=== PATIENT | female | born 1990 | race American Indian/Alaskan Native ===

== ENCOUNTER 2022-05-01 19:31 | Emergency (ER) | payer MEDICAID ==
[2022-05-01] MEDS ORDERED: Ketorolac 30 MG/ML SDV IVPUSH ONE (20:34)
[2022-05-01] MEDS ORDERED: Sodium Chloride 0.9% 1,000 ML IV ONE (20:34)
[2022-05-01] MEDS ORDERED: Ondansetron 4 MG/2 ML SDV IVPUSH ONE (20:34)
[2022-05-01 20:35] LABS: BLOOD UREA NITROGEN,BUN 14 mg/dL (7.0-18.0); CARBON DIOXIDE,CO2 22.8 mmol/L (21.0-32.0); CHLORIDE,CL 102 mmol/L (98-107); GLUCOSE RANDOM 315 mg/dL (74-106); POTASSIUM,K 4.2 mmol/L (3.5-5.1); SODIUM,NA 134 mmol/L (136-145)
[2022-05-01 20:39] LABS: ESTIMATED GFR 89 mL/min (>60)
[2022-05-01 21:51] LABS: CORONAVIRUS COVID-19 NAA NEGATIVE (NEGATIVE); INFLUENZA A NAA NEGATIVE (NEGATIVE); INFLUENZA B NAA NEGATIVE (NEGATIVE)
== END 2022-05-01 22:45 | disposition home or self-care (01) ==
LOC: MW.ED 19:31
DX: R07.89 Other chest pain (principal); E86.0 Dehydration; E11.65 Type 2 diabetes mellitus with hyperglycemia; R11.2 Nausea with vomiting, unspecified; Z20.822 Contact with and (suspected) exposure to COVID-19; Z79.899 Other long term (current) drug therapy; Z79.4 Long term (current) use of insulin; Z90.49 Acquired absence of other specified parts of digestive tract
CPT/HCPCS: 0240U; 36415; 71045; 80053; 80307; 82009; 83690; 84484; 84703; 85025; 93005; 96361; 96374; 96375; 99285; J1885; J2405; J7030; 93010; 99284

== ENCOUNTER 2022-05-17 13:44 | Emergency (ER) | payer MEDICAID | END 2022-05-17 16:00 | disposition left against medical advice (07) | LOC: MW.ED 13:44 | DX: Z53.21 Procedure and treatment not carried out due to patient leaving prior to being seen by health care provider (principal) ==

== ENCOUNTER 2022-08-27 16:12 | Emergency (ER) | payer MEDICAID ==
[2022-08-27] MEDS ORDERED: Ketorolac 60 MG/2 ML SDV IM ONE (16:14)
[2022-08-27] MEDS ORDERED: Lidocaine 2% Viscous Solution 15 ML UD PO ONE (16:14)
[2022-08-27] MEDS ORDERED: Benzocaine 20% Topical Spray UD MUCMEM ONE (16:14)
[2022-08-27] MEDS ORDERED: Penicillin V Potassium 500 MG Tab PO STA (16:17)
== END 2022-08-27 18:50 | disposition home or self-care (01) ==
LOC: MW.ED 16:12
DX: K04.7 Periapical abscess without sinus (principal); K02.9 Dental caries, unspecified; E11.9 Type 2 diabetes mellitus without complications; Z91.013 Allergy to seafood; Z91.018 Allergy to other foods
CPT/HCPCS: 96372; 99282; A9270; J1885

== ENCOUNTER 2022-11-27 13:03 | Emergency (ER) | payer MEDICAID, OTHER ==
[2022-11-27] MEDS ORDERED: cefTRIAXone 500 MG in Lidocaine 1% 1 ML IM STA (15:21)
== END 2022-11-27 16:07 | disposition home or self-care (01) ==
LOC: MW.ED 13:03
DX: N30.01 Acute cystitis with hematuria (principal); F15.10 Other stimulant abuse, uncomplicated; F12.10 Cannabis abuse, uncomplicated; K04.7 Periapical abscess without sinus; E11.9 Type 2 diabetes mellitus without complications; Z91.013 Allergy to seafood; Z91.018 Allergy to other foods
CPT/HCPCS: 80305; 81001; 81025; 87086; 87088; 87186; 93005; 96372; 99283; J0696; J3490

== ENCOUNTER 2022-12-10 20:14 | Observation (INO) | payer SELFPAY ==
[2022-12-10] MEDS ORDERED: Acetaminophen 325 MG Tab PO ONE (20:50)
[2022-12-10] MEDS ORDERED: Lactated Ringers 1,000 ML IV SCH (21:00)
[2022-12-10 21:47] LABS: CARBON DIOXIDE,CO2 24.2 mmol/L (21.0-32.0)
[2022-12-10] MEDS ORDERED: Glucagon,Human Recombinant 1 MG Vial IM PRN ×3 (22:06→22:46)
[2022-12-10] MEDS ORDERED: Insulin Regular, Human 100 Units/ML 10 ML Vial SUBCUT ONE (22:06)
[2022-12-10] MEDS ORDERED: 50% Dextrose in Water 50 ML Syringe IVPUSH PRN ×3 (22:06→22:46)
[2022-12-10] MEDS ORDERED: Ibuprofen 600 MG Tab PO PRN (22:28)
[2022-12-10] MEDS ORDERED: Ondansetron 4 MG Tab.DIS PO PRN (22:28)
[2022-12-10] MEDS ORDERED: Ondansetron 4 MG/2 ML SDV IVPUSH PRN (22:28)
[2022-12-10] MEDS ORDERED: Enoxaparin 40 MG/0.4 ML Syringe SUBCUT SCH (22:30)
[2022-12-10] MEDS ORDERED: Insulin Regular, Human 100 Units/ML 10 ML Vial SUBCUT STA (22:55)
[2022-12-10] MEDS ORDERED: Insulin Glargine,Hum.Rec.Anlog 100 UNIT/ML 3 ML Pen SUBCUT SCH (23:00)
[2022-12-11] MEDS ORDERED: Acetaminophen 325 MG Tab PO PRN (01:00)
[2022-12-11 06:05] LABS: HEMOGLOBIN A1C 12.8 %
[2022-12-11] MEDS ORDERED: Insulin Aspart 100 Units/ML 3 ML Pen SUBCUT SCH ×2 (07:30→11:30)
[2022-12-11] MEDS ORDERED: Glucagon,Human Recombinant 1 MG Vial IM PRN (11:26)
[2022-12-11] MEDS ORDERED: 50% Dextrose in Water 50 ML Syringe IVPUSH PRN (11:26)
[2022-12-11] MEDS ORDERED: Insulin Regular, Human 100 Units/ML 10 ML Vial SUBCUT ONE (22:46)
== END 2022-12-11 12:50 | disposition home or self-care (01) ==
LOC: MW.ED 20:14 → MW.MS 22:25
PROVIDERS: ADMIT Hospitalist; ATTEND Hospitalist
DX: R07.89 Other chest pain (principal); E11.65 Type 2 diabetes mellitus with hyperglycemia; Z91.199 Patient's noncompliance with other medical treatment and regimen due to unspecified reason; F19.10 Other psychoactive substance abuse, uncomplicated; F12.90 Cannabis use, unspecified, uncomplicated; Z79.4 Long term (current) use of insulin; F41.9 Anxiety disorder, unspecified; Z90.49 Acquired absence of other specified parts of digestive tract; Z79.899 Other long term (current) drug therapy
CPT/HCPCS: 36415; 71046; 80053; 80305; 81003; 82803; 82947; 83036; 83605; 83690; 83735; 84703; 85025; A9270; G0378; J1815; J7120; 99285

== ENCOUNTER 2022-12-23 19:39 | Emergency (ER) | payer MEDICAID ==
[2022-12-23] MEDS ORDERED: Famotidine 20 MG Tab PO ONE (19:43)
[2022-12-23] MEDS ORDERED: Dexamethasone 10 MG/ML SDV IM STA (19:43)
== END 2022-12-23 20:23 | disposition home or self-care (01) ==
LOC: MW.ED 19:39
DX: T78.40XA Allergy, unspecified, initial encounter (principal); E10.9 Type 1 diabetes mellitus without complications; Z91.018 Allergy to other foods; Z91.013 Allergy to seafood; Z90.49 Acquired absence of other specified parts of digestive tract
CPT/HCPCS: 96372; 99283; A9270; J1100

== ENCOUNTER 2023-01-06 15:54 | Emergency (ER) | payer MEDICAID ==
[2023-01-06] MEDS ORDERED: Sodium Chloride 0.9% 10 ML Syringe FLUSH PRN (15:55)
[2023-01-06] MEDS ORDERED: Sodium Chloride 0.9% 2.5 ML Syringe FLUSH PRN (15:55)
[2023-01-06] MEDS ORDERED: Sodium Chloride 0.9% 1,000 ML IV ONE (16:02)
[2023-01-06 16:32] LABS: BASOPHILS PERCENT AUTO 0.2 % (0.0-1.5); EOSINOPHILS ABSOLUTE AUTO 0.1 K/uL (0.0-0.7); EOSINOPHILS PERCENT AUTO 2.2 % (0.0-7.0); HEMATOCRIT 35.6 % (36.0-46.0); HEMOGLOBIN 11.9 g/dL (12.0-16.0); LYMPHOCYTES ABSOLUTE AUTO 1.8 K/uL (0.6-2.4); LYMPHOCYTES PERCENT AUTO 29.5 % (16.0-40.0); MEAN CORPUSCULAR HEMOGLOBIN 26.7 pg (27.0-32.0); MEAN CORPUSCULAR HGB CONC 33.4 g/dL (31.0-37.0); MONOCYTES ABSOLUTE AUTO 0.4 K/uL (0.0-0.8); MONOCYTES PERCENT AUTO 7.1 % (0.0-15.0); NEUTROPHILS ABSOLUTE AUTO 3.6 K/uL (1.4-5.7); NRBC ABSOLUTE 0 K/uL; PLATELET COUNT,PLT 334 K/uL (150-400); RED BLOOD CELL COUNT 4.45 M/uL (4.30-5.90); WHITE BLOOD CELL COUNT,WBC 5.94 K/uL (4.0-11.0)
[2023-01-06 16:44] LABS: APPEARANCE,URINE CLEAR; BILIRUBIN,URINE NEGATIVE (NEGATIVE); COLOR,URINE YELLOW; GLUCOSE,URINE >=1000 mg/dL (NEGATIVE); KETONES,URINE NEGATIVE (NEGATIVE); LEUKOCYTE ESTERASE,URINE NEGATIVE (NEGATIVE); NITRITE,URINE NEGATIVE (NEGATIVE); OCCULT BLOOD,URINE NEGATIVE (NEGATIVE); PROTEIN,URINE NEGATIVE (NEGATIVE); UROBILINOGEN,URINE 0.2 EU/dL (<2.0)
[2023-01-06 16:54] LABS: AMPHETAMINES SCREEN, URINE PRESUMPTIVE POSITIVE (CUTOFF=500); BARBITURATE SCREEN,URINE NEGATIVE (CUTOFF=200); BENZODIAZEPINES SCREEN,URINE NEGATIVE (CUTOFF=150); BUPRENORPHINE SCREEN,URINE NEGATIVE (CUTOFF=10); METHADONE SCREEN, URINE NEGATIVE (CUTOFF=200); METHAMPHETAMINES SCREEN, URINE PRESUMPTIVE POSITIVE (CUTOFF=500); OXYCODONE SCREEN,URINE NEGATIVE (CUT0FF=100); PCP SCREEN,URINE NEGATIVE (CUTOFF=25); PROPOXYPHENE SCREEN,URINE NEGATIVE (CUTOFF=300); THC SCREEN,URINE 20 NG/ML PRESUMPTIVE POSITIVE (CUTOFF=50)
[2023-01-06 17:02] LABS: A/G RATIO 0.7 (0.9-1.6); ALANINE AMINOTRANSFERASE,ALT 16 IU/L (14-63); ALBUMIN 2.6 g/dL (3.4-5.0); ALKALINE PHOSPHATASE 91 U/L (46-116); ASPARTATE AMNIOTRANSFERASE,AST 14 IU/L (15-37); BILIRUBIN TOTAL 0.2 mg/dL (0.2-1.0); BLOOD UREA NITROGEN,BUN 11 mg/dL (7.0-18.0); CALCIUM 8.2 mg/dL (8.5-10.1); CARBON DIOXIDE,CO2 22.7 mmol/L (21.0-32.0); CHLORIDE,CL 104 mmol/L (98-107); CREATININE 0.7 mg/dL (0.6-1.0); ESTIMATED GFR 119 mL/min (>60); GLUCOSE RANDOM 376 mg/dL (74-106); LIPASE 117 U/L (73-393); MAGNESIUM 1.8 mg/dL (1.8-2.4); PROTEIN TOTAL,TP 6.5 g/dL (6.4-8.2); SODIUM,NA 137 mmol/L (136-145)
[2023-01-06] MEDS ORDERED: Iopamidol 755 MG/ML 500 ML Multipack Bottle IVPUSH ONE (17:11)
[2023-01-06] MEDS ORDERED: Lidocaine 1% 5 ML VIAL INJECT ONE (17:23)
[2023-01-06] MEDS ORDERED: Insulin Regular, Human 100 Units/ML 10 ML Vial SUBCUT ONE (17:24)
[2023-01-06] MEDS ORDERED: 50% Dextrose in Water 50 ML Syringe IVPUSH PRN (17:24)
[2023-01-06] MEDS ORDERED: Glucagon,Human Recombinant 1 MG Vial IM PRN (17:24)
[2023-01-06] MEDS ORDERED: Clindamycin HCl 150 MG Cap PO ONE (17:58)
== END 2023-01-06 18:50 | disposition home or self-care (01) ==
LOC: MW.ED 15:54
DX: L02.31 Cutaneous abscess of buttock (principal); E10.65 Type 1 diabetes mellitus with hyperglycemia; F19.10 Other psychoactive substance abuse, uncomplicated; Z91.013 Allergy to seafood; Z91.018 Allergy to other foods; Z91.198 Patient's noncompliance with other medical treatment and regimen for other reason
CPT/HCPCS: 36415; 74177; 80053; 80305; 81003; 81025; 82009; 82947; 83605; 83690; 83735; 85025; 87040; 96360; 99285; A9270; J1815; J3490; J7030; Q9967; 99283

== ENCOUNTER 2023-01-17 16:27 | Emergency (ER) | payer MEDICAID ==
[2023-01-17] MEDS ORDERED: oxyCODONE 5 MG Tab PO ONE (17:49)
[2023-01-17] MEDS ORDERED: Acetaminophen 325 MG Tab PO ONE (17:49)
[2023-01-17] MEDS ORDERED: Ibuprofen 400 MG Tab PO ONE (17:49)
[2023-01-17] MEDS ORDERED: Lidocaine 2% 5 ML SDV INJECT ONE (17:50)
[2023-01-17] MEDS ORDERED: Lidocaine 1% 5 ML VIAL ONE (17:55)
[2023-01-17] MEDS ORDERED: Lidocaine 1% 5 ML VIAL INJECT ONE (17:58)
[2023-01-17] MEDS ORDERED: Amoxicillin/Clavulanate K 875-125 MG Tab PO ONE (18:11)
== END 2023-01-17 19:11 | disposition home or self-care (01) ==
LOC: MW.ED 16:27
DX: K04.7 Periapical abscess without sinus (principal); E10.9 Type 1 diabetes mellitus without complications; Z79.899 Other long term (current) drug therapy; Z91.018 Allergy to other foods; Z91.013 Allergy to seafood; Z98.890 Other specified postprocedural states
CPT/HCPCS: 41800; 99282; A9270; 40800; 99283; J3490

== ENCOUNTER 2023-02-15 02:01 | Emergency (ER) | payer SELFPAY ==
[2023-02-15 02:43] LABS: BASOPHILS PERCENT AUTO 0.1 % (0.0-1.5); EOSINOPHILS PERCENT AUTO 0.2 % (0.0-7.0); HEMATOCRIT 43.3 % (36.0-46.0); HEMOGLOBIN 14.5 g/dL (12.0-16.0); LYMPHOCYTES ABSOLUTE AUTO 2.1 K/uL (0.6-2.4); LYMPHOCYTES PERCENT AUTO 24.3 % (16.0-40.0); MEAN CORPUSCULAR HGB CONC 33.5 g/dL (31.0-37.0); MEAN CORPUSCULAR VOLUME 80.6 fL (80.0-98.0); MONOCYTES ABSOLUTE AUTO 0.6 K/uL (0.0-0.8); MONOCYTES PERCENT AUTO 7.2 % (0.0-15.0); NEUTROPHILS ABSOLUTE AUTO 5.8 K/uL (1.4-5.7); NEUTROPHILS PERCENT AUTO 68.2 % (48.0-80.0); NRBC ABSOLUTE 0 K/uL; PLATELET COUNT,PLT 390 K/uL (150-400); RED BLOOD CELL COUNT 5.37 M/uL (4.30-5.90); WHITE BLOOD CELL COUNT,WBC 8.49 K/uL (4.0-11.0)
[2023-02-15] MEDS ORDERED: Lactated Ringers 1,000 ML IV SCH (02:45)
[2023-02-15 02:46] LABS: BASE EXCESS VENOUS 0.5 (-2.0-3.0); BICARBONATE,VENOUS 26 mEq/L (23-28); PCO2 VENOUS 46 mmHG (41-51); PH,VENOUS 7.37 (7.31-7.41)
[2023-02-15 02:48] LABS: PO2 VENOUS < 30 mmHG
[2023-02-15] MEDS ORDERED: Naloxone 0.4 MG/ML SDV IVPUSH PRN (02:55)
[2023-02-15] MEDS ORDERED: Lidocaine 2% 5 ML SDV INJECT ONE (02:55)
[2023-02-15] MEDS ORDERED: Morphine 4 MG/ML Syringe IVPUSH ONE (02:55)
[2023-02-15] MEDS ORDERED: Sulfamethoxazole/Trimethoprim 800-160 MG Tab PO ONE (02:55)
[2023-02-15 03:12] LABS: A/G RATIO 0.7 (0.9-1.6); ALBUMIN 3.8 g/dL (3.4-5.0); BILIRUBIN TOTAL 0.5 mg/dL (0.2-1.0); CALCIUM 9.6 mg/dL (8.5-10.1); CARBON DIOXIDE,CO2 24.9 mmol/L (21.0-32.0); CREATININE 0.8 mg/dL (0.6-1.0); EST CRCL DRUG DOSING (CG) 85.06 mL/min; POTASSIUM,K 4.3 mmol/L (3.5-5.1); PROTEIN TOTAL,TP 9.2 g/dL (6.4-8.2)
[2023-02-15 03:17] LABS: LACTIC ACID 0.9 mmol/L (0.4-2.0)
[2023-02-15] MEDS ORDERED: Morphine 4 MG/ML Syringe ONE (03:50)
[2023-02-15] MEDS ORDERED: Morphine 4 MG/ML Syringe IVPUSH STA (03:51)
== END 2023-02-15 04:22 | disposition home or self-care (01) ==
LOC: MW.ED 02:01 → EEVIPCON 02:01 → MW.ED 04:22
DX: L02.811 Cutaneous abscess of head [any part, except face] (principal); E10.9 Type 1 diabetes mellitus without complications; Z88.8 Allergy status to other drugs, medicaments and biological substances; Z91.013 Allergy to seafood; Z91.018 Allergy to other foods
CPT/HCPCS: 10060; 36415; 80053; 82009; 82803; 82947; 83605; 83690; 84703; 85025; 87040; 87070; 87077; 87186; 87205; 96361; 96374; 96376; 99283; A9270; J2270; J7120; 99284; J3490

== ENCOUNTER 2023-03-03 16:59 | Emergency (ER) | payer MEDICAID ==
[2023-03-03] MEDS ORDERED: Morphine 4 MG/ML Syringe IVPUSH ONE (18:06)
[2023-03-03] MEDS ORDERED: Sodium Chloride 0.9% 1,000 ML IV ONE ×2 (18:06→19:38)
[2023-03-03] MEDS ORDERED: Clindamycin Phosphate in D5W 600 MG in Premix Bag 1 BAG IV ONE ×2 (18:08)
[2023-03-03 18:45] LABS: BASOPHILS PERCENT AUTO 0.3 % (0.0-1.5); EOSINOPHILS ABSOLUTE AUTO 0.1 K/uL (0.0-0.7); EOSINOPHILS PERCENT AUTO 0.9 % (0.0-7.0); HEMATOCRIT 43.8 % (36.0-46.0); HEMOGLOBIN 14.8 g/dL (12.0-16.0); LYMPHOCYTES ABSOLUTE AUTO 1.9 K/uL (0.6-2.4); LYMPHOCYTES PERCENT AUTO 24.5 % (16.0-40.0); MEAN CORPUSCULAR HEMOGLOBIN 27.7 pg (27.0-32.0); MEAN CORPUSCULAR HGB CONC 33.8 g/dL (31.0-37.0); MONOCYTES ABSOLUTE AUTO 0.5 K/uL (0.0-0.8); MONOCYTES PERCENT AUTO 6.7 % (0.0-15.0); NEUTROPHILS ABSOLUTE AUTO 5.3 K/uL (1.4-5.7); NEUTROPHILS PERCENT AUTO 67.6 % (48.0-80.0); NRBC ABSOLUTE 0 K/uL; PLATELET COUNT,PLT 458 K/uL (150-400); RED BLOOD CELL COUNT 5.34 M/uL (4.30-5.90); WHITE BLOOD CELL COUNT,WBC 7.81 K/uL (4.0-11.0)
[2023-03-03 19:10] LABS: A/G RATIO 0.8 (0.9-1.6); BILIRUBIN TOTAL 0.2 mg/dL (0.2-1.0); CALCIUM 9.6 mg/dL (8.5-10.1); CARBON DIOXIDE,CO2 28.9 mmol/L (21.0-32.0); CREATININE 0.8 mg/dL (0.6-1.0); EST CRCL DRUG DOSING (CG) 85.06 mL/min; POTASSIUM,K 4.4 mmol/L (3.5-5.1); PROTEIN TOTAL,TP 8.9 g/dL (6.4-8.2)
[2023-03-03 19:30] LABS: LACTIC ACID 1.3 mmol/L (0.4-2.0)
[2023-03-03] MEDS ORDERED: Insulin Regular, Human 100 Units/ML 10 ML Vial IVPUSH ONE (19:55)
[2023-03-03] MEDS ORDERED: Glucagon,Human Recombinant 1 MG Vial IM PRN (19:55)
[2023-03-03] MEDS ORDERED: 50% Dextrose in Water 50 ML Syringe IVPUSH PRN (19:55)
[2023-03-03] MEDS ORDERED: Acetaminophen/HYDROcodone 325-5 MG Tab PO ONE (21:29)
== END 2023-03-03 21:38 | disposition home or self-care (01) ==
LOC: MW.ED 16:59
DX: L02.413 Cutaneous abscess of right upper limb (principal); B35.0 Tinea barbae and tinea capitis; E10.9 Type 1 diabetes mellitus without complications; Z79.899 Other long term (current) drug therapy; Z91.018 Allergy to other foods; Z91.013 Allergy to seafood
CPT/HCPCS: 10060; 36415; 80053; 82947; 83605; 84703; 85025; 87040; 87070; 87077; 87186; 87205; 96361; 96365; 96375; 99283; J1815; J2270; J3490; J7030

== ENCOUNTER 2023-03-08 19:29 | Emergency (ER) | payer MEDICAID | END 2023-03-08 20:59 | disposition home or self-care (01) | LOC: MW.ED 19:29 | DX: B35.0 Tinea barbae and tinea capitis (principal); E10.9 Type 1 diabetes mellitus without complications; Z79.899 Other long term (current) drug therapy; Z91.018 Allergy to other foods; Z91.013 Allergy to seafood; Z98.890 Other specified postprocedural states | CPT/HCPCS: 70450; 70450-26; 99283; 99284 ==

== ENCOUNTER 2023-07-04 16:55 | Emergency (ER) | payer MEDICAID ==
[2023-07-04] MEDS ORDERED: Sodium Chloride 0.9% 10 ML Syringe FLUSH PRN (17:30)
[2023-07-04] MEDS ORDERED: Sodium Chloride 0.9% 2.5 ML Syringe FLUSH PRN (17:30)
[2023-07-04] MEDS ORDERED: Sodium Chloride 0.9% 1,000 ML IV STA (17:32)
[2023-07-04] MEDS ORDERED: Ketorolac 30 MG/ML SDV IVPUSH STA (17:32)
[2023-07-04] MEDS ORDERED: Acetaminophen 500 MG Tab PO STA (17:39)
[2023-07-04 18:17] LABS: BILIRUBIN,URINE NEGATIVE (NEGATIVE); COLOR,URINE YELLOW; GLUCOSE,URINE >=1000 mg/dL (NEGATIVE); KETONES,URINE 15 mg/dL (NEGATIVE); LEUKOCYTE ESTERASE,URINE SMALL (NEGATIVE); NITRITE,URINE POSITIVE (NEGATIVE); OCCULT BLOOD,URINE TRACE-INTACT (NEGATIVE); PH,URINE 6.5 (5.0-8.0); PROTEIN,URINE NEGATIVE (NEGATIVE); UROBILINOGEN,URINE 0.2 EU/dL (<2.0)
[2023-07-04 18:27] LABS: AMPHETAMINES SCREEN, URINE PRESUMPTIVE POSITIVE (CUTOFF=500); BARBITURATE SCREEN,URINE NEGATIVE (CUTOFF=200); BENZODIAZEPINES SCREEN,URINE NEGATIVE (CUTOFF=150); BUPRENORPHINE SCREEN,URINE NEGATIVE (CUTOFF=10); METHADONE SCREEN, URINE NEGATIVE (CUTOFF=200); METHAMPHETAMINES SCREEN, URINE PRESUMPTIVE POSITIVE (CUTOFF=500); OXYCODONE SCREEN,URINE NEGATIVE (CUT0FF=100); PCP SCREEN,URINE NEGATIVE (CUTOFF=25); PROPOXYPHENE SCREEN,URINE NEGATIVE (CUTOFF=300); THC SCREEN,URINE 20 NG/ML PRESUMPTIVE POSITIVE (CUTOFF=50)
[2023-07-04 18:33] LABS: APPEARANCE,URINE CLOUDY
[2023-07-04 18:37] LABS: EPITHELIAL CELLS,URINE MODERATE (NONE-FEW); RBC,URINE 0-1 (0-2/HPF)
[2023-07-04 18:38] LABS: BACTERIA,URINE 3+ (NEGATIVE)
[2023-07-04 18:39] LABS: WBC,URINE TO NUMEROUS TO COUNT (0-5/HPF)
[2023-07-04 18:46] LABS: BASOPHILS ABSOLUTE AUTO 0.04 K/uL (0.00-0.20); BASOPHILS PERCENT AUTO 0.4 % (0.0-1.0); EOSINOPHILS ABSOLUTE AUTO 0.09 K/uL (0.00-0.45); EOSINOPHILS PERCENT AUTO 0.8 % (0.0-6.0); IMMATURE GRAN ABSOLUTE AUTO 0.02 K/uL (0.00-0.05); IMMATURE GRAN PERCENT AUTO 0.2 % (0.0-0.4); LYMPHOCYTES ABSOLUTE AUTO 1.57 K/uL (1.00-4.80); LYMPHOCYTES PERCENT AUTO 14.6 % (24.0-44.0); MEAN CORPUSCULAR HGB CONC 33.3 g/dL (32.0-36.0); MEAN CORPUSCULAR VOLUME 80.9 fL (83.0-99.0); MEAN PLATELET VOLUME 9.4 fL (9.4-12.3); MONOCYTES ABSOLUTE AUTO 0.64 K/uL (0.00-0.80); MONOCYTES PERCENT AUTO 5.9 % (0.0-8.0); NEUTROPHILS ABSOLUTE AUTO 8.41 K/uL (1.80-7.70); NEUTROPHILS PERCENT AUTO 78.1 % (41.0-71.0); PLATELET COUNT,PLT 391 K/uL (150-400); RED BLOOD CELL COUNT 5.56 M/uL (4.10-5.30); WHITE BLOOD CELL COUNT,WBC 10.77 K/uL (3.9-11.3)
[2023-07-04 19:05] LABS: CORONAVIRUS COVID-19 NAA NEGATIVE (NEGATIVE); INFLUENZA A NAA NEGATIVE (NEGATIVE); INFLUENZA B NAA NEGATIVE (NEGATIVE)
[2023-07-04 20:46] LABS: A/G RATIO 0.7 (0.9-1.6); BILIRUBIN TOTAL 0.2 mg/dL (0.2-1.0); CALCIUM 8.4 mg/dL (8.5-10.1); CARBON DIOXIDE,CO2 25.5 mmol/L (21.0-32.0); CREATININE 0.7 mg/dL (0.6-1.0); EST CRCL DRUG DOSING (CG) 97.21 mL/min; POTASSIUM,K 4.2 mmol/L (3.5-5.1); PROTEIN TOTAL,TP 7.1 g/dL (6.4-8.2)
[2023-07-04] MEDS ORDERED: Iopamidol 755 MG/ML 500 ML Multipack Bottle IVPUSH ONE (21:01)
[2023-07-04] MEDS ORDERED: cefTRIAXone 1 GM in Sodium Chloride 0.9% 50 ML IV STA (21:21)
== END 2023-07-04 22:25 | disposition home or self-care (01) ==
LOC: MW.ED 16:55
DX: L03.811 Cellulitis of head [any part, except face] (principal); K04.7 Periapical abscess without sinus; N30.01 Acute cystitis with hematuria; E10.9 Type 1 diabetes mellitus without complications; Z98.890 Other specified postprocedural states; Z91.018 Allergy to other foods; Z91.013 Allergy to seafood; Z20.822 Contact with and (suspected) exposure to COVID-19
CPT/HCPCS: 0240U; 36415; 70450; 70491; 80053; 80305; 81001; 81025; 82009; 82947; 83690; 83735; 85025; 87086; 87651; 96361; 96365; 96375; 99284; A9270; J0696; J1885; J3490; J7030; Q9967

== ENCOUNTER 2023-11-27 02:31 | Emergency (ER) | payer SELFPAY ==
[2023-11-27] MEDS: Ketorolac 30 MG/ML SDV IM ONE (02:47)
[2023-11-27] MEDS: Acetaminophen 325 MG Tab PO ONE (02:47)
== END 2023-11-27 03:38 | disposition home or self-care (01) ==
LOC: MW.ED 02:31
DX: S30.0XXA Contusion of lower back and pelvis, initial encounter (principal); E10.9 Type 1 diabetes mellitus without complications; Z91.018 Allergy to other foods; Z91.013 Allergy to seafood; Z90.49 Acquired absence of other specified parts of digestive tract; Z75.8 Other problems related to medical facilities and other health care; W10.8XXA Fall (on) (from) other stairs and steps, initial encounter
CPT/HCPCS: 73502; 73552; 96372; 99283; A9270; J1885

== ENCOUNTER 2023-11-28 13:36 | Emergency (ER) | payer SELFPAY ==
[2023-11-28] MEDS: Ketorolac 30 MG/ML SDV IM ONE (14:05)
== END 2023-11-28 16:01 | disposition home or self-care (01) ==
LOC: MW.ED 13:36
DX: M25.552 Pain in left hip (principal); E10.9 Type 1 diabetes mellitus without complications; Z91.018 Allergy to other foods; Z91.013 Allergy to seafood; Z90.49 Acquired absence of other specified parts of digestive tract; Z75.8 Other problems related to medical facilities and other health care; Z79.899 Other long term (current) drug therapy; W19.XXXA Unspecified fall, initial encounter
CPT/HCPCS: 72192; 96372; 99283; J1885

== ENCOUNTER 2023-12-04 02:13 | Emergency (ER) | payer SELFPAY ==
[2023-12-04] MEDS: HYDROmorphone 1 MG/ML Syringe IM ONE (02:30)
== END 2023-12-04 03:15 | disposition home or self-care (01) ==
LOC: MW.ED 02:13
DX: S70.02XA Contusion of left hip, initial encounter (principal); E10.9 Type 1 diabetes mellitus without complications; Z91.030 Bee allergy status; Z91.018 Allergy to other foods; Z79.899 Other long term (current) drug therapy; Z75.8 Other problems related to medical facilities and other health care; Z90.49 Acquired absence of other specified parts of digestive tract; W00.9XXA Unspecified fall due to ice and snow, initial encounter
CPT/HCPCS: 96372; 99283; J1170

== ENCOUNTER 2023-12-07 08:24 | Inpatient (IN) | payer SELFPAY ==
[2023-12-07 08:40] LABS: HEMOGLOBIN 13.8 g/dL (12.0-16.0); MEAN CORPUSCULAR HEMOGLOBIN 27.1 pg (28.0-32.0); MEAN CORPUSCULAR HGB CONC 34.5 g/dL (32.0-36.0); MEAN CORPUSCULAR VOLUME 78.6 fL (83.0-99.0); MEAN PLATELET VOLUME 9.5 fL (9.4-12.3); PLATELET COUNT,PLT 454 K/uL (150-400); RED BLOOD CELL COUNT 5.09 M/uL (4.10-5.30)
[2023-12-07] MEDS: Sodium Chloride 0.9% 10 ML Syringe FLUSH PRN (08:42)
[2023-12-07] MEDS: Sodium Chloride 0.9% 2.5 ML Syringe FLUSH PRN (08:42)
[2023-12-07] MEDS: Sodium Chloride 0.9% 1,000 ML IV STA ×2 (08:42→10:30)
[2023-12-07 08:45] LABS: BASE EXCESS VENOUS -21.6 (-2.0-3.0); PH,VENOUS 7.1 (7.31-7.41)
[2023-12-07 08:58] LABS: APPEARANCE,URINE CLEAR; COLOR,URINE YELLOW; GLUCOSE,URINE >=1000 mg/dL (NEGATIVE); KETONES,URINE >=80 mg/dL (NEGATIVE); LEUKOCYTE ESTERASE,URINE TRACE (NEGATIVE); NITRITE,URINE NEGATIVE (NEGATIVE); OCCULT BLOOD,URINE SMALL (NEGATIVE); PH,URINE 5.5 (5.0-8.0); PROTEIN,URINE TRACE mg/dL (NEGATIVE); UROBILINOGEN,URINE 0.2 EU/dL (<2.0)
[2023-12-07 08:59] LABS: BILIRUBIN,URINE SMALL (NEGATIVE)
[2023-12-07 09:05] LABS: AMPHETAMINES SCREEN, URINE PRESUMPTIVE POSITIVE (CUTOFF=500); BARBITURATE SCREEN,URINE NEGATIVE (CUTOFF=200); BENZODIAZEPINES SCREEN,URINE NEGATIVE (CUTOFF=150); BUPRENORPHINE SCREEN,URINE NEGATIVE (CUTOFF=10); METHADONE SCREEN, URINE NEGATIVE (CUTOFF=200); METHAMPHETAMINES SCREEN, URINE PRESUMPTIVE POSITIVE (CUTOFF=500); OXYCODONE SCREEN,URINE NEGATIVE (CUT0FF=100); PCP SCREEN,URINE NEGATIVE (CUTOFF=25); THC SCREEN,URINE 20 NG/ML PRESUMPTIVE POSITIVE (CUTOFF=50)
[2023-12-07 09:10] LABS: BACTERIA,URINE FEW (NEGATIVE); EPITHELIAL CELLS,URINE OCCASIONAL (NONE-FEW); RBC,URINE 0-2 (0-2/HPF); YEAST,URINE FEW
[2023-12-07 09:16] LABS: ALBUMIN 1.8 g/dL (3.4-5.0); BILIRUBIN TOTAL 0.4 mg/dL (0.2-1.0); CALCIUM 9.4 mg/dL (8.5-10.1); CARBON DIOXIDE,CO2 7.1 mmol/L (21.0-32.0); EST CRCL DRUG DOSING (CG) 67.43 mL/min; POTASSIUM,K 3.1 mmol/L (3.5-5.1)
[2023-12-07 09:32] LABS: BAND ABSOLUTE MAN 1.55; BAND PERCENT MAN 6 %; LYMPHOCYTES ABSOLUTE MAN 0.77 K/uL (1.00-4.80); LYMPHOCYTES PERCENT MAN 3 % (24-44); METAMYELOCYTE ABSOLUTE MAN 0.77; METAMYELOCYTE PERCENT MAN 3 %; MONOCYTES ABSOLUTE MAN 2.06 K/uL (0.00-0.80); MONOCYTES PERCENT MAN 8 % (0-8); SEG NEUTROPHILS ABSOLUTE MAN 20.64 K/uL (1.80-7.70); SEG NEUTROPHILS PERCENT MAN 80 % (41-71)
[2023-12-07 09:37] LABS: A/G RATIO 0.4 (0.9-1.6)
[2023-12-07] MEDS ORDERED: Potassium Chloride 20 MEQ in Premix Bag 1 BAG IV ONE (10:16)
[2023-12-07] MEDS: Potassium Chloride 10 MEQ in Premix Bag 1 BAG IV SCH (10:30)
[2023-12-07] MEDS: Potassium Chloride 10% 20 MEQ/15 ML Soln 15 ML UD Cup PO ONE (10:30)
[2023-12-07] MEDS: Ondansetron 4 MG/2 ML SDV IVPUSH ONE (11:03)
[2023-12-07 11:52] LABS: CALCIUM 8.6 mg/dL (8.5-10.1); CARBON DIOXIDE,CO2 6.5 mmol/L (21.0-32.0); CREATININE 0.8 mg/dL (0.6-1.0); EST CRCL DRUG DOSING (CG) 84.29 mL/min; POTASSIUM,K 2.9 mmol/L (3.5-5.1)
[2023-12-07] MEDS: NS with KCl 40mEq 1,000 ML IV SCH (12:17)
[2023-12-07] MEDS: Insulin Regular in 0.9 % NACL 100 ML IV SCH (12:22)
[2023-12-07] MEDS: Midazolam 1 MG/ML 2 ML SDV IVPUSH ONE (13:05)
[2023-12-07] MEDS: VANCOmycin 1.5 GM/300 ML 1.5 GM in Premix Bag 1 BAG IV ONE (13:33)
[2023-12-07] MEDS: Piperacillin/Tazobactam 3.375 GM in Sodium Chloride 0.9% 100 ML IV SCH ×2 (14:09→19:52)
[2023-12-07 14:31] LABS: CALCIUM 8.5 mg/dL (8.5-10.1); CARBON DIOXIDE,CO2 7.5 mmol/L (21.0-32.0); CREATININE 0.8 mg/dL (0.6-1.0); EST CRCL DRUG DOSING (CG) 84.29 mL/min
[2023-12-07] MEDS: Potassium Chloride 20 MEQ Tab.ER PO ONE ×2 (14:40→15:13)
[2023-12-07] MEDS: Potassium Chloride 20 MEQ in Premix Bag 1 BAG IV SCH (14:53)
[2023-12-07 15:05] LABS: POTASSIUM,K 1.8 mmol/L (3.5-5.1)
[2023-12-07 16:34] LABS: CALCIUM 8.3 mg/dL (8.5-10.1); CARBON DIOXIDE,CO2 5.1 mmol/L (21.0-32.0); CREATININE 0.7 mg/dL (0.6-1.0); EST CRCL DRUG DOSING (CG) 96.33 mL/min; MAGNESIUM 2.2 mg/dL (1.8-2.4); POTASSIUM,K 3.5 mmol/L (3.5-5.1)
[2023-12-07] MEDS ORDERED: Naloxone 0.4 MG/ML SDV IVPUSH PRN (16:53)
[2023-12-07] MEDS: Morphine 2 MG/ML SYRINGE IVPUSH PRN (17:02)
[2023-12-07 18:32] LABS: CARBON DIOXIDE,CO2 7.4 mmol/L (21.0-32.0); CREATININE 0.7 mg/dL (0.6-1.0); EST CRCL DRUG DOSING (CG) 96.33 mL/min; POTASSIUM,K 3.1 mmol/L (3.5-5.1)
[2023-12-07] MEDS: NS + KCl 20mEq/L 1,000 ML IV SCH (18:53)
[2023-12-07 20:42] LABS: CALCIUM 7.8 mg/dL (8.5-10.1); CARBON DIOXIDE,CO2 10.4 mmol/L (21.0-32.0); CREATININE 0.7 mg/dL (0.6-1.0); EST CRCL DRUG DOSING (CG) 96.33 mL/min; POTASSIUM,K 2.9 mmol/L (3.5-5.1)
[2023-12-07] MEDS: Potassium Chloride 100 ML IV SCH (21:31)
[2023-12-07 22:27] LABS: CALCIUM 7.9 mg/dL (8.5-10.1); CARBON DIOXIDE,CO2 10.4 mmol/L (21.0-32.0); CREATININE 0.6 mg/dL (0.6-1.0); EST CRCL DRUG DOSING (CG) 112.38 mL/min; POTASSIUM,K 3.4 mmol/L (3.5-5.1)
[2023-12-07] MEDS: Dextrose 5%-0.9% NaCl with KCl 1,000 ML IV SCH (23:38)
[2023-12-08 00:52] LABS: CALCIUM 7.7 mg/dL (8.5-10.1); CARBON DIOXIDE,CO2 11.2 mmol/L (21.0-32.0); CREATININE 0.7 mg/dL (0.6-1.0); EST CRCL DRUG DOSING (CG) 96.33 mL/min; POTASSIUM,K 3.4 mmol/L (3.5-5.1)
[2023-12-08 02:58] LABS: CALCIUM 7.8 mg/dL (8.5-10.1); CARBON DIOXIDE,CO2 13.2 mmol/L (21.0-32.0); CREATININE 0.6 mg/dL (0.6-1.0); EST CRCL DRUG DOSING (CG) 112.38 mL/min; POTASSIUM,K 2.9 mmol/L (3.5-5.1)
[2023-12-08] MEDS: Potassium Chloride 100 ML IV SCH ×2 (03:42→11:09)
[2023-12-08 05:18] LABS: CALCIUM 7.7 mg/dL (8.5-10.1); CREATININE 0.6 mg/dL (0.6-1.0); EST CRCL DRUG DOSING (CG) 112.38 mL/min; POTASSIUM,K 3.2 mmol/L (3.5-5.1)
[2023-12-08 06:25] LABS: HEMATOCRIT 28.6 % (37.0-47.0); MEAN CORPUSCULAR HEMOGLOBIN 26.7 pg (28.0-32.0); MEAN CORPUSCULAR VOLUME 76.3 fL (83.0-99.0); MEAN PLATELET VOLUME 9.5 fL (9.4-12.3); PLATELET COUNT,PLT 410 K/uL (150-400); RED BLOOD CELL COUNT 3.75 M/uL (4.10-5.30); WHITE BLOOD CELL COUNT,WBC 25.63 K/uL (3.9-11.3)
[2023-12-08 06:41] LABS: CALCIUM 7.6 mg/dL (8.5-10.1); CARBON DIOXIDE,CO2 13.8 mmol/L (21.0-32.0); CREATININE 0.7 mg/dL (0.6-1.0); EST CRCL DRUG DOSING (CG) 96.33 mL/min
[2023-12-08 06:51] LABS: BAND ABSOLUTE MAN 0.51; BAND PERCENT MAN 2 %; LYMPHOCYTES ABSOLUTE MAN 0.51 K/uL (1.00-4.80); LYMPHOCYTES PERCENT MAN 2 % (24-44); MONOCYTES ABSOLUTE MAN 1.54 K/uL (0.00-0.80); MONOCYTES PERCENT MAN 6 % (0-8); SEG NEUTROPHILS ABSOLUTE MAN 23.07 K/uL (1.80-7.70); SEG NEUTROPHILS PERCENT MAN 90 % (41-71)
[2023-12-08 08:42] LABS: CALCIUM 7.7 mg/dL (8.5-10.1); CARBON DIOXIDE,CO2 13.7 mmol/L (21.0-32.0); CREATININE 0.6 mg/dL (0.6-1.0); EST CRCL DRUG DOSING (CG) 112.38 mL/min; POTASSIUM,K 3.2 mmol/L (3.5-5.1)
[2023-12-08 10:44] LABS: CALCIUM 7.6 mg/dL (8.5-10.1); CARBON DIOXIDE,CO2 15.5 mmol/L (21.0-32.0); CREATININE 0.6 mg/dL (0.6-1.0); EST CRCL DRUG DOSING (CG) 112.38 mL/min; POTASSIUM,K 2.7 mmol/L (3.5-5.1)
[2023-12-08] MEDS: Potassium Chloride 20 MEQ Tab.ER PO ONE (11:08)
[2023-12-08] MEDS: oxyCODONE 5 MG Tab PO PRN (11:15)
[2023-12-08 12:41] LABS: CALCIUM 7.6 mg/dL (8.5-10.1); CARBON DIOXIDE,CO2 13.9 mmol/L (21.0-32.0); CREATININE 0.5 mg/dL (0.6-1.0); EST CRCL DRUG DOSING (CG) 134.86 mL/min; POTASSIUM,K 3.2 mmol/L (3.5-5.1)
[2023-12-08] MEDS: Sodium Chloride 0.9% 250 ML ONE (13:26)
[2023-12-08 14:53] LABS: CALCIUM 7.2 mg/dL (8.5-10.1); CARBON DIOXIDE,CO2 14.6 mmol/L (21.0-32.0); CREATININE 0.5 mg/dL (0.6-1.0); EST CRCL DRUG DOSING (CG) 134.86 mL/min; MAGNESIUM 1.7 mg/dL (1.8-2.4); PHOSPHORUS 0.8 mg/dL (2.6-4.7); POTASSIUM,K 3.5 mmol/L (3.5-5.1)
[2023-12-08 18:27] LABS: CALCIUM 7.2 mg/dL (8.5-10.1); CARBON DIOXIDE,CO2 17.7 mmol/L (21.0-32.0); CREATININE 0.5 mg/dL (0.6-1.0); EST CRCL DRUG DOSING (CG) 134.86 mL/min; POTASSIUM,K 2.9 mmol/L (3.5-5.1)
[2023-12-08] MEDS: Iopamidol 755 MG/ML 500 ML Multipack Bottle IVPUSH STA (19:05)
[2023-12-08] MEDS: Potassium Chloride 20 MEQ in Premix Bag 1 BAG IV ONE (20:16)
[2023-12-08 22:48] LABS: CALCIUM 7.1 mg/dL (8.5-10.1); CARBON DIOXIDE,CO2 18.5 mmol/L (21.0-32.0); CREATININE 0.5 mg/dL (0.6-1.0); EST CRCL DRUG DOSING (CG) 134.86 mL/min; POTASSIUM,K 3.3 mmol/L (3.5-5.1)
[2023-12-08 23:41] LABS: MAGNESIUM 1.6 mg/dL (1.8-2.4); PHOSPHORUS 0.8 mg/dL (2.6-4.7)
[2023-12-09] MEDS: Potassium Chloride 100 ML IV SCH (00:04)
[2023-12-09] MEDS ORDERED: Magnesium Sulfate (4.06 MEQ/ML) 5 GM/10 ML SDV IV ONE (01:01)
[2023-12-09] MEDS ORDERED: Sodium Phosphate 15 mMole/5 ML SDV IV STA (01:03)
[2023-12-09] MEDS ORDERED: Sodium Phosphate 15 mMole/5 ML SDV IV ONE ×3 (01:03→11:00)
[2023-12-09] MEDS ORDERED: Magnesium Sulfate/Water 2 GM in Premix Bag 1 BAG IV SCH (01:30)
[2023-12-09] MEDS: Phosphorus #1 250 MG Tab PO ONE (02:09)
[2023-12-09] MEDS ORDERED: Sodium Phosphate 45 MMOLE in Sodium Chloride 0.9% 250 ML IV ONE (02:30)
[2023-12-09 02:39] LABS: CALCIUM 7.2 mg/dL (8.5-10.1); CARBON DIOXIDE,CO2 20.2 mmol/L (21.0-32.0); CREATININE 0.5 mg/dL (0.6-1.0); EST CRCL DRUG DOSING (CG) 134.86 mL/min; POTASSIUM,K 2.7 mmol/L (3.5-5.1)
[2023-12-09] MEDS: Magnesium Sulfate/Water 2 GM in Premix Bag 1 BAG IV ONE (03:09)
[2023-12-09] MEDS: Sodium Phosphate 45 MMOLE in Sodium Chloride 0.9% 250 ML IV ONE (03:20)
[2023-12-09] MEDS: Potassium Chloride 20 MEQ in Premix Bag 1 BAG IV SCH ×2 (03:49→11:50)
[2023-12-09] MEDS ORDERED: Glucagon,Human Recombinant 1 MG Vial IM PRN (04:02)
[2023-12-09] MEDS ORDERED: 50% Dextrose in Water 50 ML Syringe IVPUSH PRN (04:02)
[2023-12-09] MEDS: Insulin Glargine,Hum.Rec.Anlog 100 UNIT/ML 3 ML Pen SUBCUT SCH (04:16)
[2023-12-09 06:04] LABS: HEMATOCRIT 25.4 % (37.0-47.0); HEMOGLOBIN 9.2 g/dL (12.0-16.0); MEAN CORPUSCULAR HEMOGLOBIN 27.8 pg (28.0-32.0); MEAN CORPUSCULAR HGB CONC 36.2 g/dL (32.0-36.0); MEAN CORPUSCULAR VOLUME 76.7 fL (83.0-99.0); MEAN PLATELET VOLUME 9.6 fL (9.4-12.3); PLATELET COUNT,PLT 349 K/uL (150-400); RED BLOOD CELL COUNT 3.31 M/uL (4.10-5.30); WHITE BLOOD CELL COUNT,WBC 18.69 K/uL (3.9-11.3)
[2023-12-09 06:30] LABS: SEG NEUTROPHILS PERCENT MAN 76 % (41-71)
[2023-12-09 06:31] LABS: BAND ABSOLUTE MAN 0.37; BAND PERCENT MAN 2 %; LYMPHOCYTES ABSOLUTE MAN 2.06 K/uL (1.00-4.80); LYMPHOCYTES PERCENT MAN 11 % (24-44); METAMYELOCYTE ABSOLUTE MAN 0.37; METAMYELOCYTE PERCENT MAN 2 %; MONOCYTES ABSOLUTE MAN 1.31 K/uL (0.00-0.80); MONOCYTES PERCENT MAN 7 % (0-8); MYELOCYTE ABSOLUTE MAN 0.37; MYELOCYTE PERCENT MAN 2 %
[2023-12-09 06:32] LABS: A/G RATIO 0.3 (0.9-1.6); ALBUMIN 1.2 g/dL (3.4-5.0); BILIRUBIN TOTAL 0.2 mg/dL (0.2-1.0); CALCIUM 7.2 mg/dL (8.5-10.1); CARBON DIOXIDE,CO2 18.5 mmol/L (21.0-32.0); CREATININE 0.4 mg/dL (0.6-1.0); EST CRCL DRUG DOSING (CG) 168.57 mL/min; MAGNESIUM 1.9 mg/dL (1.8-2.4); POTASSIUM,K 3.5 mmol/L (3.5-5.1); PROTEIN TOTAL,TP 5.1 g/dL (6.4-8.2)
[2023-12-09] MEDS: Insulin Aspart 100 Units/ML 3 ML Pen SUBCUT SCH (07:58)
[2023-12-09] MEDS: Potassium Chloride 20 MEQ Tab.ER PO ONE ×2 (07:59→11:51)
[2023-12-09] MEDS ORDERED: Potassium Chloride 10 MEQ in Premix Bag 1 BAG IV SCH ×2 (09:15→11:00)
[2023-12-09] MEDS ORDERED: Sodium Phosphate 15 MMOLE in Sodium Chloride 0.9% 250 ML IV ONE ×2 (09:15→10:45)
[2023-12-09 10:35] LABS: PHOSPHORUS 2.2 mg/dL (2.6-4.7); POTASSIUM,K 3.2 mmol/L (3.5-5.1)
[2023-12-09] MEDS: Sodium Phosphate 30 MMOLE in Sodium Chloride 0.9% 250 ML IV ONE (11:47)
[2023-12-09] MEDS: Phosphorus #1 250 MG Tab PO SCH (11:51)
== END 2023-12-09 13:26 | DRG 638 ==
LOC: MW.ED 08:24 → MW.ICU 10:35
PROVIDERS: ADMIT Internal Medicine; ATTEND Internal Medicine
DX: E10.10 Type 1 diabetes mellitus with ketoacidosis without coma (principal); E87.1 Hypo-osmolality and hyponatremia; R78.81 Bacteremia; F41.9 Anxiety disorder, unspecified; E10.65 Type 1 diabetes mellitus with hyperglycemia; M25.552 Pain in left hip; E87.8 Other disorders of electrolyte and fluid balance, not elsewhere classified; E87.6 Hypokalemia; Z91.018 Allergy to other foods; Z91.013 Allergy to seafood; Z90.49 Acquired absence of other specified parts of digestive tract; Z98.51 Tubal ligation status; Z91.148 Patient's other noncompliance with medication regimen for other reason
CPT/HCPCS: 36415; 70487; 70487-26; 71045; 71045-26; 71260; 71260-26; 73501-26-LT; 73501-LT; 73701-26-LT; 73701-LT; 74177; 74177-26; 80048; 80053; 80202; 80305-QW; 81001; 82550; 82803; 82947; 83605; 83735; 84100; 84132; 85025; 87040; 87077; 87186; 96360; 99285-25; 99291; A9270-GY; J1815; J1815-GY; J2250; J2270; J2405; J2543; J3370; J3475; J3480; J3490; J7030; J7050; Q9967

== ENCOUNTER 2024-06-18 17:44 | Emergency (ER) | payer MEDICAID | END 2024-06-18 19:42 | disposition left against medical advice (07) | LOC: MW.ED 17:44 | DX: Z53.21 Procedure and treatment not carried out due to patient leaving prior to being seen by health care provider (principal) ==

== ENCOUNTER 2024-06-26 12:53 | Emergency (ER) | payer MEDICAID | END 2024-06-26 13:16 | disposition left against medical advice (07) | LOC: MW.ED 12:53 | DX: Z53.21 Procedure and treatment not carried out due to patient leaving prior to being seen by health care provider (principal) ==

== ENCOUNTER 2024-06-26 17:31 | Emergency (ER) | payer MEDICAID ==
[2024-06-26] MEDS: Doxycycline 100 MG Cap PO ONE (21:09)
[2024-06-26] MEDS: Ibuprofen 600 MG Tab PO ONE (21:09)
== END 2024-06-26 21:15 | disposition home or self-care (01) ==
LOC: MW.ED 17:31
DX: L03.312 Cellulitis of back [any part except buttock and flank] (principal); E10.9 Type 1 diabetes mellitus without complications; Z90.49 Acquired absence of other specified parts of digestive tract; Z79.899 Other long term (current) drug therapy; Z91.018 Allergy to other foods; Z91.013 Allergy to seafood; Z75.8 Other problems related to medical facilities and other health care
CPT/HCPCS: 99283; A9270